=== PATIENT | female | born 1970 | race Caucasian/White ===

== ENCOUNTER 2020-06-11 19:45 | Emergency (ER) | payer MEDICAID, OTHER ==
[~2020-06-11] VITALS: Ht 154.9 cm; Wt 73.0 kg
[2020-06-11 20:39] LABS: CLARITY URINE CLEAR (CLEAR); COLOR URINE YELLOW (YELLOW); KETONES URINE NEGATIVE (NEGATIVE); LEUKOCYTE ESTERASE URINE NEGATIVE (NEGATIVE); NITRITE URINE NEGATIVE (NEGATIVE); OCCULT BLOOD URINE 2+ (NEGATIVE); PROTEIN URINE TRACE (NEGATIVE); SPECIFIC GRAVITY URINE 1.014 (1.005-1.030); UROBILINOGEN URINE 0.2 E.U./dL (0.2-1.0)
[2020-06-12 00:26] LABS: BASOPHILS % 0.5 % (0.0-2.0); EOSINOPHILS % 0.1 % (0.0-5.0); HEMATOCRIT. 35.1 % (36.0-48.0); HEMOGLOBIN. 11.6 g/dL (12.0-16.0); LYMPHOCYTES % 22.9 % (20.0-50.0); MEAN CORPUSCULAR HEMOGLOBIN 26.9 pg (28.0-32.0); MEAN CORPUSCULAR VOLUME 81.6 fL (81.0-99.0); MEAN PLATELET VOLUME 7.8 fl (7.4-10.4); MONOCYTES % 5.9 % (2.0-8.0); NEUTROPHILS % 70.6 % (40.0-76.0); PLATELET 382 x1000/uL (130-400); RED CELL DISTRIBUTION WIDTH 15.7 % (11.6-14.6)
[2020-06-12 00:33] LABS: CHLORIDE 109 mEq/L (98-107)
[2020-06-12 00:36] LABS: HCG SCREEN NEGATIVE
[2020-06-12 01:00] VITALS: BP 135/67
== END 2020-06-12 02:00 | disposition home or self-care (01) ==
LOC: ER 19:45
DX: N13.30 Unspecified hydronephrosis (principal)
CPT/HCPCS: 36415; 76700; 80048; 80076; 81003; 81025; 84484; 84703; 85025; 93005; 99285